=== PATIENT | male | born 1990 | race Caucasian/White ===

== ENCOUNTER 2019-03-03 08:59 | Emergency (ER) | payer OTHER ==
[~2019-03-03] VITALS: Ht 175.3 cm; Wt 64.4 kg
[2019-03-03] MEDS ORDERED: NORCO 5-325 TA1 EAC1 PO (10:26)
[2019-03-03] MEDS ORDERED: KEFLEX500 M1 PO (10:26)
[2019-03-03 10:42] VITALS: BP 154/83
== END 2019-03-03 10:43 | disposition home or self-care (01) ==
LOC: M.ERS 08:59
DX: S61.210A Laceration without foreign body of right index finger without damage to nail, initial encounter (principal); F17.210 Nicotine dependence, cigarettes, uncomplicated; Z88.1 Allergy status to other antibiotic agents; W26.0XXA Contact with knife, initial encounter; Y92.89 Other specified places as the place of occurrence of the external cause; Y93.89 Activity, other specified; Y99.8 Other external cause status